=== PATIENT | male | born 1965 | race Caucasian/White ===

== ENCOUNTER → 2017-09-12 | Outpatient (CLI) | payer OTHER ==
--- NOTE | 2017-09-12 09:37 | RAD ---
Indication: Hemochromatosis. Technique: Ultrasound of the abdomen was performed. No comparison is available. Findings: Most of the pancreas is obscured by bowel gas. Aorta is normal caliber. IVC is patent. The liver is normal in size and echogenicity. Right hepatic lobe measures 14.9 cm longitudinal. Simple cyst in the right hepatic lobe measures 14 mm. Gallbladder is negative. Common bile duct measures 3 mm. Kidneys are without hydronephrosis or mass. Spleen is not enlarged. Impression: 1. No acute abdominal findings. 2. Simple cyst in the right hepatic lobe.
== END | disposition home or self-care (01) ==
LOC: US 08:28
PROVIDERS: ATTEND Internal Medicine Gastroenterology
DX: E83.119 Hemochromatosis, unspecified (principal); K76.89 Other specified diseases of liver
CPT/HCPCS: 76700

== ENCOUNTER → 2019-06-12 | Outpatient (CLI) | payer OTHER ==
--- NOTE | 2019-06-12 14:45 | KCIC ---
Indication:Hemachromatosis TECHNIQUE: Grayscale, color Doppler and spectral waveform is of the abdomen obtained. COMPARISON: Previous exam from 09/12/2017. FINDINGS: Pancreas not visualized due to overlying bowel gas. Aorta and IVC are normal visualized due to overlying bowel gas. 1.5 x 1.4 x 1.3 cm simple cyst in the right hepatic lobe. Main portal vein is patent with hepatopedal flow. Liver measures 15 cm in longest dimension and is normal in size and echogenicity. No gallstones, pericholecystic fluid or gallbladder wall thickening. Right kidney measures 11.2 cm in length without hydronephrosis. CBD measures 4 mm in diameter and is within normal limits. Spleen measures 13 cm in longest dimension and is top normal in size. Left kidney measures 11.6 cm in length without hydronephrosis. IMPRESSION: 1. No hepatosplenomegaly. 2. No cholelithiasis. Electronically signed by: Rubin Price DO (06/12/2019 2:42 PM) [facility]
== END | disposition home or self-care (01) ==
LOC: KCIC US 11:50
PROVIDERS: ATTEND Internal Medicine
DX: K76.89 Other specified diseases of liver (principal); E83.110 Hereditary hemochromatosis
CPT/HCPCS: 76700